=== PATIENT | female | born 1975 | race Caucasian/White ===

== ENCOUNTER 2021-08-19 05:45 | Emergency (ER) | payer MEDICAID ==
[~2021-08-19] VITALS: Ht 162.6 cm; Wt 59.0 kg
[2021-08-19 05:50] VITALS: BP 132/93
[2021-08-19] MEDS ORDERED: KETOROLAC 30 MG/ML VIAL IVP ONE (05:55)
[2021-08-19] MEDS ORDERED: NACL 0.9% 1,000 ML IV SCH (05:55)
[2021-08-19] MEDS ORDERED: ONDANSETRON 4 MG/2 ML VIAL IVP ONE (05:55)
--- NOTE | 2021-08-19 05:55 | NUR ---
[facility]
--- NOTE | 2021-08-19 06:19 | NUR ---
pt is refusing lab draws, iv start and is not answering questions. made aware and speaking to pt.
--- NOTE | 2021-08-19 06:19 | NUR ---
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
--- NOTE | 2021-08-19 06:31 | NUR ---
22G RT AC ESTABLISHED. BLOOD DRAWN VIA IV START AND HANDED TO [employer] ASSEM[employer].
[2021-08-19 06:33] LABS: BASOPHILS % (AUTO) 0.6 % (0.0-2.0); EOSINOPHILS # (AUTO) 0.1 K/uL (0-0.4); EOSINOPHILS % (AUTO) 2.5 % (0.0-4.0); HEMATOCRIT 34.1 % (36-48); HEMOGLOBIN 11.3 g/dL (12.0-16.0); LYMPHOCYTES # (AUTO) 1.2 K/uL (2.5-16.5); LYMPHOCYTES % (AUTO) 25.2 % (20.5-51.1); MEAN CORPUSCULAR HEMOGLOBIN 26 pg (27-31); MEAN CORPUSCULAR HGB CONC 33 g/dL (33-37); MEAN CORPUSCULAR VOLUME 76.9 fL (80-94); MONOCYTES # (AUTO) 0.4 K/uL (0.8-1.0); MONOCYTES % (AUTO) 7.9 % (1.7-9.3); NEUTROPHILS # (AUTO) 3.1 K/uL (1.8-7.7); NEUTROPHILS % (AUTO) 63.8 % (42.2-75.2); PLATELET COUNT (AUTO) 245 K/uL (140-450); RED BLOOD CELL COUNT(AUTO) 4.43 MIL/uL (4.20-5.40); RED CELL DISTRIBUTION WIDTH 15.3 % (11.6-13.7); WHITE BLOOD COUNT (AUTO) 4.9 K/uL (4.8-10.8)
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
--- NOTE | 2021-08-19 06:40 | NUR ---
PT UNABLE TO PROVIDE URINE AT THIS TIME.
[2021-08-19 06:51] LABS: ANION GAP 12.2 (8-16); CARBON DIOXIDE 26.4 mmol/L (21-32); CREATININE 0.7 mg/dL (0.6-1.3); POTASSIUM 3.6 mmol/L (3.5-5.1); TOTAL BILIRUBIN 0.3 mg/dL (0.0-1.0)
--- NOTE | 2021-08-19 06:54 | NUR ---
PT APPEARS TO BE RESTING. PT'S EYES ARE CLOSED, OPENS TO TOUCH. EQUAL RISE AND FALL OF CHEST WALL. VSS. PT IS IN STABLE CONDITION. BED LOCKED IN LOWEST, SIDE RAILS X2 FOR SAFETY.
--- NOTE | 2021-08-19 07:20 | NUR ---
Pt report given to KRISTEN MCFARLANE. Transfer of care at this time.
--- NOTE | 2021-08-19 07:20 | NUR ---
PATIENT REPORT RECIEVED FROM LEANDRA PETERSON.
--- NOTE | 2021-08-19 07:45 | NUR ---
PATIENT USING RESTROOM, REFUSES TO PROVIDE URINE
[2021-08-19] MEDS ORDERED: ONDA-188 SL (07:49)
--- NOTE | 2021-08-19 08:13 | NUR ---
Patient given written and verbal discharge instructions and verbalizes understanding. Given copies of tests performed during visit. Patient is awake, alert and oriented. Ambulatory with steady gait. Refuses offer of long-term placement. Given list of available shelters in surrounding areas.
[2021-08-19 08:16] VITALS: BP 120/85
== END 2021-08-19 08:13 | disposition home or self-care (01) ==
LOC: MED 05:45
DX: R10.9 Unspecified abdominal pain (principal); F15.90 Other stimulant use, unspecified, uncomplicated; R42 Dizziness and giddiness; R11.0 Nausea; Z79.899 Other long term (current) drug therapy
CPT/HCPCS: 80053; 83690; 84703; 85025; 96361; 96374; 96375; 99284; G0482; J1885; J2405; J7030